=== PATIENT | male | born 1955 | race Caucasian/White ===

== ENCOUNTER 2023-10-16 21:41 | Inpatient (IN) | payer OTHER ==
[2023-10-16] MEDS ORDERED: IBUPROFEN 600 MG TABLET (FP) PO ONE (22:52)
[2023-10-16] MEDS: IBUPROFEN 600 MG TABLET (FP) PO ONE (23:11)
[2023-10-16] MEDS: SODIUM CHLORIDE 0.9% 500 ML INFUS.BAG IV ONE (23:11)
[2023-10-16 23:17] LABS: BASO % 0.7 % (0-2.0); EOS % 1.5 % (0-4.5); HEMATOCRIT 39.4 % (35.4-49); HEMOGLOBIN 13.6 GM/dL (11.7-16.9); LYMPH % 9.8 % (8-40); MCH 31.2 pg (25.7-33.7); MCHC 34.6 g/dl (32.0-35.9); MEAN CELL VOLUME 90.1 fl (80-96); PLATELET COUNT 182 10^3/uL (134-434); RBC 4.37 M/mm3 (4.00-5.60); RDW 13.3 % (11.9-15.9); WHITE BLOOD COUNT 7.3 K/mm3 (4.0-10.0)
[2023-10-16 23:39] LABS: POTASSIUM 4.1 mmol/L (3.5-5.1)
[2023-10-16 23:41] LABS: BLOOD UREA NITROGEN 23.6 mg/dL (7-18); CALCIUM 9.4 mg/dL (8.5-10.1)
[2023-10-16 23:42] LABS: ALBUMIN 3.8 g/dl (3.4-5.0)
[2023-10-16 23:45] LABS: CREATININE 1.3 mg/dL (0.55-1.3)
[2023-10-16 23:46] LABS: BILIRUBIN,TOTAL 0.6 mg/dL (0.2-1); TOT PROT 6.9 g/dl (6.4-8.2)
[2023-10-16 23:57] LABS: EPI CELLS 4 /uL (0-25.1); HYALINE CASTS 0 /uL (0-3.1); URINE APPEARANCE CLEAR; URINE BACTERIA 2 /uL (0-1359); URINE BILIRUBIN NEGATIVE (NEGATIVE); URINE COLOR YELLOW; URINE GLUCOSE (UA) 3+ (NEGATIVE); URINE KETONE NEGATIVE (NEGATIVE); URINE LEUK ESTERASE NEGATIVE (NEGATIVE); URINE NITRITE NEGATIVE (NEGATIVE); URINE PROTEIN 1+ (NEGATIVE); URINE RBC 11 /uL (0-23.9); URINE WBC 18 /uL (0-25.8)
[2023-10-17] MEDS ORDERED: ASPIRIN 81 MG CHEWABLE TABLETS ONE (00:05)
[2023-10-17] MEDS ORDERED: HEPARIN NA (PORCINE) 5,000 UNITS/ML 1ML VIAL IVPUSH PRN ×2 (00:09)
[2023-10-17] MEDS: ASPIRIN 81 MG CHEWABLE TABLETS PO ONE (00:36)
[2023-10-17] MEDS: SODIUM CHLORIDE 0.9% 500 ML INFUS.BAG IV ONE (00:36)
[2023-10-17] MEDS: HEPARIN INFUSION - 25,000 UNITS/500 ML INFUS.BAG IVPB SCH (01:06)
[2023-10-17 01:28] LABS: INR 1.15 (0.83-1.09); PROTHROMBIN TIME (PATIENT) 13.3 SEC (9.7-13.0)
[2023-10-17 01:30] LABS: ACTIVATED PTT 35.2 SECONDS (25.2-36.5)
[2023-10-17 02:10] LABS: ANISOCYTOSIS 0; MACROCYTOSIS 0
[2023-10-17 03:14] VITALS: BMI 28.0
[2023-10-17 07:52] LABS: POTASSIUM 3.8 mmol/L (3.5-5.1)
[2023-10-17 07:53] LABS: BASO % 1.2 % (0-2.0); EOS % 1.6 % (0-4.5); HEMATOCRIT 38.6 % (35.4-49); HEMOGLOBIN 13.2 GM/dL (11.7-16.9); LYMPH % 16.9 % (8-40); MCH 30.6 pg (25.7-33.7); MCHC 34.1 g/dl (32.0-35.9); MEAN CELL VOLUME 89.8 fl (80-96); MEAN PLT VOLUME 8.6 fl (7.5-11.1); MONO % 8.6 % (3.8-10.2); NEUT % 71.7 % (42.8-82.8); PLATELET COUNT 173 10^3/uL (134-434); RBC 4.29 M/mm3 (4.00-5.60); RDW 13.2 % (11.9-15.9); WHITE BLOOD COUNT 6.8 K/mm3 (4.0-10.0)
[2023-10-17 07:59] LABS: CALCIUM 8.7 mg/dL (8.5-10.1)
[2023-10-17 08:00] LABS: ALBUMIN 3.5 g/dl (3.4-5.0); BLOOD UREA NITROGEN 19.4 mg/dL (7-18)
[2023-10-17 08:01] LABS: BILIRUBIN,TOTAL 0.8 mg/dL (0.2-1); TOT PROT 6.4 g/dl (6.4-8.2)
[2023-10-17 08:26] LABS: CHOLESTEROL 103 mg/dL (50-200)
[2023-10-17 08:27] LABS: LDL CHOLESTEROL (ONLY SJRH) 65 mg/dL (5-100)
[2023-10-17 08:29] LABS: HDL CHOLESTEROL 22 mg/dL (40-60)
[2023-10-17] MEDS: FINASTERIDE 5 MG TABLET (FP) PO SCH (10:10)
[2023-10-17] MEDS: LOSARTAN POTASSIUM 50 MG TABLET PO SCH (10:10)
[2023-10-17] MEDS: amLODIPine BESYLATE 10 MG TABLET (FP) PO SCH (10:10)
[2023-10-17] MEDS: TAMSULOSIN HCL 0.4 MG CAP PO SCH (10:11)
[2023-10-17] MEDS: ATORVASTATIN CA 40 MG TABLET (FP) PO ONE (10:11)
[2023-10-17] MEDS: ACETAMINOPHEN 325 MG TABLET (FP) PO PRN (11:10)
[2023-10-17] MEDS: CEFTRIAXONE 2 GM-D5W BAG 2 GM/50 ML BAG IVPB SCH (11:11)
[2023-10-17] MEDS ORDERED: AZITHROMYCIN IVPB 500 MG/250 ML BAG IVPB ONE (11:30)
[2023-10-17] MEDS: CEFTRIAXONE 2 GM in DEXTROSE 5%-WATER 100 ML IVPB SCH (12:20)
[2023-10-17] MEDS: AZITHROMYCIN IVPB 500 MG/250 ML BAG IVPB ONE (12:47)
[2023-10-18 07:11] LABS: BASO % 0.9 % (0-2.0); EOS % 0.2 % (0-4.5); HEMATOCRIT 36.3 % (35.4-49); HEMOGLOBIN 12.4 GM/dL (11.7-16.9); LYMPH % 12.7 % (8-40); MCH 30.9 pg (25.7-33.7); MCHC 34.3 g/dl (32.0-35.9); MEAN CELL VOLUME 90.3 fl (80-96); MEAN PLT VOLUME 9.1 fl (7.5-11.1); NEUT % 76.2 % (42.8-82.8); PLATELET COUNT 172 10^3/uL (134-434); RBC 4.02 M/mm3 (4.00-5.60); RDW 13.2 % (11.9-15.9); WHITE BLOOD COUNT 7.9 K/mm3 (4.0-10.0)
[2023-10-18 07:26] LABS: POTASSIUM 3.7 mmol/L (3.5-5.1)
[2023-10-18 07:34] LABS: CALCIUM 8.5 mg/dL (8.5-10.1)
[2023-10-18 07:35] LABS: ALBUMIN 3.2 g/dl (3.4-5.0); BLOOD UREA NITROGEN 24.8 mg/dL (7-18)
[2023-10-18 07:39] LABS: BILIRUBIN,TOTAL 1.2 mg/dL (0.2-1); TOT PROT 6.2 g/dl (6.4-8.2)
[2023-10-18 08:17] LABS: INR 1.25 (0.83-1.09); PROTHROMBIN TIME (PATIENT) 14.5 SEC (9.7-13.0)
[2023-10-18 08:20] LABS: ACTIVATED PTT 51.8 SECONDS (25.2-36.5)
[2023-10-18] MEDS: ASPIRIN 81 MG CHEWABLE TABLETS PO SCH (09:27)
[2023-10-18] MEDS: AZITHROMYCIN IVPB 500 MG/250 ML BAG IVPB SCH (10:48)
[2023-10-18] MEDS: methylPREDNISolone NA SUCC 40 MG/1 ML VIAL IVPUSH SCH (14:40)
[2023-10-18] MEDS: ATORVASTATIN CA 40 MG TABLET (FP) PO SCH (22:02)
[2023-10-18] MEDS: INSULIN (NOVOLOG) ASPART 100 UNITS/ML 10ML VIAL SQ ONE (23:50)
[2023-10-19] MEDS: INSULIN ASPART SLIDING SCALE (NOVOLOG) 1 VIAL SQ SCH (06:05)
[2023-10-19 08:45] LABS: BASO % 0.2 % (0-2.0); HEMATOCRIT 33.8 % (35.4-49); HEMOGLOBIN 11.8 GM/dL (11.7-16.9); LYMPH % 11.9 % (8-40); MCH 31.2 pg (25.7-33.7); MCHC 35.1 g/dl (32.0-35.9); MEAN CELL VOLUME 89.1 fl (80-96); MEAN PLT VOLUME 8.5 fl (7.5-11.1); MONO % 8.7 % (3.8-10.2); NEUT % 79.2 % (42.8-82.8); PLATELET COUNT 181 10^3/uL (134-434); RBC 3.79 M/mm3 (4.00-5.60); RDW 13.3 % (11.9-15.9); WHITE BLOOD COUNT 8.4 K/mm3 (4.0-10.0)
[2023-10-19 09:00] LABS: POTASSIUM 4.1 mmol/L (3.5-5.1)
[2023-10-19 09:02] LABS: ALBUMIN 3.2 g/dl (3.4-5.0)
[2023-10-19 09:03] LABS: BLOOD UREA NITROGEN 27.3 mg/dL (7-18)
[2023-10-19 09:07] LABS: BILIRUBIN,TOTAL 0.9 mg/dL (0.2-1); TOT PROT 6.5 g/dl (6.4-8.2)
[2023-10-19] MEDS: INSULIN (LEVEMIR) 100 UNITS/ML UNITS SQ SCH (12:33)
[2023-10-19] MEDS: EMPAGLIFLOZIN (JARDIANCE) 10 MG TABLET PO SCH (17:48)
[2023-10-20 08:18] LABS: BASO % 0.3 % (0-2.0); EOS % 0.1 % (0-4.5); HEMATOCRIT 34.7 % (35.4-49); HEMOGLOBIN 11.9 GM/dL (11.7-16.9); LYMPH % 12.9 % (8-40); MCH 30.7 pg (25.7-33.7); MCHC 34.4 g/dl (32.0-35.9); MEAN CELL VOLUME 89.2 fl (80-96); MEAN PLT VOLUME 9.3 fl (7.5-11.1); MONO % 7.7 % (3.8-10.2); PLATELET COUNT 231 10^3/uL (134-434); RBC 3.89 M/mm3 (4.00-5.60); RDW 13.6 % (11.9-15.9); WHITE BLOOD COUNT 11.6 K/mm3 (4.0-10.0)
[2023-10-20 08:43] LABS: POTASSIUM 3.9 mmol/L (3.5-5.1)
[2023-10-20 08:54] LABS: BLOOD UREA NITROGEN 28.5 mg/dL (7-18); CALCIUM 9.2 mg/dL (8.5-10.1)
[2023-10-20 08:55] LABS: ALBUMIN 3.3 g/dl (3.4-5.0)
[2023-10-20 08:57] LABS: CREATININE 0.9 mg/dL (0.55-1.3)
[2023-10-20 08:58] LABS: BILIRUBIN,TOTAL 1.2 mg/dL (0.2-1)
[2023-10-20 09:01] LABS: TOT PROT 6.5 g/dl (6.4-8.2)
[2023-10-21] MEDS: predniSONE 10 MG TABLET (UD) PO SCH (09:30)
[2023-10-21 11:34] VITALS: BP 140/92; PULSE 84; RESP 24; TEMP 97.5
== END 2023-10-21 11:40 | disposition home or self-care (01) | DRG 193 ==
LOC: JER 21:41 → JERBED 10-17 00:13 → J4W 10-17 02:32
PROVIDERS: ADMIT Family Medicine; ATTEND Family Medicine
DX: J12.9 Viral pneumonia, unspecified (principal); I21.4 Non-ST elevation (NSTEMI) myocardial infarction; I50.22 Chronic systolic (congestive) heart failure; E11.9 Type 2 diabetes mellitus without complications; I11.0 Hypertensive heart disease with heart failure; I25.10 Atherosclerotic heart disease of native coronary artery without angina pectoris; E78.5 Hyperlipidemia, unspecified; Z95.1 Presence of aortocoronary bypass graft; Z95.5 Presence of coronary angioplasty implant and graft
CPT/HCPCS: 0241U-QW; 36415; 71046-TC-FY; 71250-TC; 80053; 80061; 81003; 82962; 83036; 84439; 84443; 84484; 85025; 85610; 85651; 85730; 86140; 87040; 87086; 87633; 87651; 87899; 93005; 93010; 93306-TC; 94761; 99285-25; J1644